=== PATIENT | female | born 1985 | race Two or more races ===

== ENCOUNTER 2016-06-05 11:25 | Emergency (ER) | payer MEDICAID, OTHER ==
[~2016-06-05] VITALS: Ht 154.9 cm; Wt 94.3 kg
[2016-06-05 11:26] VITALS: BP 140/80
[2016-06-05] MEDS ORDERED: PREN-58 PO (11:39)
== END 2016-06-05 12:13 | disposition home or self-care (01) ==
LOC: ER 11:27
DX: O9A.212 Injury, poisoning and certain other consequences of external causes complicating pregnancy, second trimester (principal); S39.012A Strain of muscle, fascia and tendon of lower back, initial encounter; S16.1XXA Strain of muscle, fascia and tendon at neck level, initial encounter; V43.62XA Car passenger injured in collision with other type car in traffic accident, initial encounter; Y93.89 Activity, other specified; Y92.488 Other paved roadways as the place of occurrence of the external cause; Y99.8 Other external cause status
CPT/HCPCS: A4606; Z7502; Z7610